=== PATIENT | female | born 1955 | race Two or more races ===

== ENCOUNTER 2017-09-15 07:56 | Emergency (ER) | payer OTHER ==
[~2017-09-15] VITALS: Ht 165.1 cm; Wt 79.8 kg
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
[2017-09-15] MEDS ORDERED: IBUPROFEN 400 MG TABLET ONE ×2 (08:19→08:22)
[2017-09-15] MEDS ORDERED: HYDROCODONE/APAP 5/325MG 1 EACH TABLET ONE (08:19)
[2017-09-15] MEDS ORDERED: ONDANSETRON 4 MG TAB.RAPDIS ONE (08:20)
[2017-09-15] MEDS ORDERED: IBUPROFEN 400 MG TABLET PO ONE (08:30)
[2017-09-15] MEDS ORDERED: HYDROCODONE/APAP 5/325MG 1 EACH TABLET PO ONE (08:30)
[2017-09-15] MEDS ORDERED: ONDANSETRON 4 MG TAB.RAPDIS SL ONE (08:30)
--- NOTE | 2017-09-15 08:44 | NUR ---
pt back from radiology
--- NOTE | 2017-09-15 09:10 | NUR ---
IV removed. Catheter intact and site benign. Pressure and 4x4 applied to site. No bleeding noted.Patient discharged to home in stable condition. Written and verbal after care instructions given. Patient verbalizes understanding of instruction.
[2017-09-15 09:15] VITALS: BP 142/88
== END 2017-09-15 09:16 | disposition home or self-care (01) ==
LOC: ER 07:57
DX: S93.402A Sprain of unspecified ligament of left ankle, initial encounter (principal); M79.672 Pain in left foot; M54.5 Low back pain; E11.9 Type 2 diabetes mellitus without complications; I10 Essential (primary) hypertension; M19.90 Unspecified osteoarthritis, unspecified site; V06.99XA Pedestrian with other conveyance injured in collision with other nonmotor vehicle, unspecified whether traffic or nontraffic accident, initial encounter; Y93.89 Activity, other specified; Y92.413 State road as the place of occurrence of the external cause; Y99.8 Other external cause status
CPT/HCPCS: 72100; 73610; 73630; 99284; A4606; Q0162; Z7610